=== PATIENT | female | born 1950 | race Caucasian/White ===

== ENCOUNTER 2020-01-14 12:43 | Emergency (ER) | payer MEDICARE, MEDICAID ==
[~2020-01-14] VITALS: Ht 165.1 cm; Wt 93.4 kg
[2020-01-14] MEDS ORDERED: QC F0.52 PO (13:07)
[2020-01-14] MEDS ORDERED: CYMB60CA3 PO (13:07)
[2020-01-14] MEDS ORDERED: ECOT81TA5 PO (13:07)
[2020-01-14] MEDS ORDERED: CYAN500T8 PO (13:07)
[2020-01-14] MEDS ORDERED: ZYLO300T6 PO (13:07)
[2020-01-14] MEDS ORDERED: IRON27TA2 PO (13:07)
[2020-01-14] MEDS ORDERED: HYDR12.55 PO (13:07)
[2020-01-14] MEDS ORDERED: DONE10TA90 PO (13:07)
[2020-01-14] MEDS ORDERED: VITA100T59 PO (13:07)
[2020-01-14] MEDS ORDERED: MELA10TA2 PO (13:07)
[2020-01-14] MEDS ORDERED: LOSA50TA88 PO (13:07)
[2020-01-14] MEDS ORDERED: CENT1TAB PO (13:07)
[2020-01-14] MEDS ORDERED: VITATAB74 PO (13:07)
[2020-01-14] MEDS ORDERED: ACETAMINOPHEN 650MG ER TAB (TYLENOL ARTHRITIS) PO SCH (14:00)
[2020-01-14] MEDS ORDERED: KETOROLAC 30 MG/ML VIAL (J1885) IM ONE (14:00)
[2020-01-14 14:30] VITALS: BP 158/79
[2020-01-14] MEDS ORDERED: TYLE650T35 PO (14:54)
[2020-01-14] MEDS ORDERED: DICL1GEL3 TOP (14:54)
--- NOTE | 2020-01-14 15:47 | REP ---
Right knee series: Five views. History: Acute exacerbation of chronic right knee pain. No acute injury. Findings: By views of the right knee demonstrate diffuse osteopenia. There is moderate chondrocalcinosis. There is three compartment osteoarthritic spurring. Patellofemoral narrowing and spur formation is seen. No erosive changes seen. No fracture is noted. Impression: Three compartment osteoarthritis. Chondrocalcinosis. No acute bony abnormality. Electronically Signed by Alo Neil MD 01/14/2020 01:28 P
== END 2020-01-14 15:15 | disposition home or self-care (01) ==
LOC: M ED 12:43
DX: M17.11 Unilateral primary osteoarthritis, right knee (principal); M25.561 Pain in right knee; G89.29 Other chronic pain; Z88.0 Allergy status to penicillin; Z79.899 Other long term (current) drug therapy; Z79.82 Long term (current) use of aspirin
CPT/HCPCS: 73564; 96372; 99283; J1885

== ENCOUNTER → 2024-05-04 | Outpatient (CLI) | payer MEDICARE, MEDICAID ==
[~2024-05-04] MED LIST: ACET650T61 PO; CENT1TAB PO; CYAN500T14 PO; CYMB60CA4 PO; DICL100G10 TOP; DONE10TA90 PO; ECOT81TA5 PO; HYDR12.55 PO; IRON27TA2 PO; LOSA50TA28 PO; MELA10TA2 PO; QC F0.52 PO; VITA100T59 PO; VITATAB74 PO; ZYLO300T6 PO
== END ==
LOC: M PAIN 13:00
PROVIDERS: ATTEND Nurse Practitioner Family
DX: M79.18 Myalgia, other site (principal); M25.561 Pain in right knee; G89.29 Other chronic pain; M25.562 Pain in left knee; I10 Essential (primary) hypertension; M10.9 Gout, unspecified; F32.A Depression, unspecified; F02.80 Dementia in other diseases classified elsewhere, unspecified severity, without behavioral disturbance, psychotic disturbance, mood disturbance, and anxiety; G30.9 Alzheimer's disease, unspecified; K21.9 Gastro-esophageal reflux disease without esophagitis; Z87.891 Personal history of nicotine dependence; Z79.899 Other long term (current) drug therapy; Z88.0 Allergy status to penicillin

== ENCOUNTER → 2024-07-02 | Outpatient (CLI) | payer MEDICARE, OTHER ==
[~2024-07-02] MED LIST changes: +ACET1TAB55; +ARIP1TAB6; +CETI-24; +DULO1CAP6; +ELIQ5TAB; +FAMO1TAB11; +GABA-282; +MELO15TA28; +METO1TAB32; +NORCO, ANEXSIA 5/325MG TABLET (HYDROcodone/ACETAMINOPHEN) As Ordered ONE; +TRAZ-257; +TRIAMCINOLONE ACETONIDE SUSP 40MG/ML 1ML VIAL As Ordered ONE; +diazePAM 5MG TABLET As Ordered ONE
== END ==
LOC: M PAIN 10:00
PROVIDERS: ATTEND Anesthesiology
DX: M79.18 Myalgia, other site (principal); G89.29 Other chronic pain; I10 Essential (primary) hypertension; M10.9 Gout, unspecified; F32.A Depression, unspecified; G30.9 Alzheimer's disease, unspecified; F02.80 Dementia in other diseases classified elsewhere, unspecified severity, without behavioral disturbance, psychotic disturbance, mood disturbance, and anxiety; K21.9 Gastro-esophageal reflux disease without esophagitis; M25.561 Pain in right knee; M25.562 Pain in left knee; Z79.1 Long term (current) use of non-steroidal anti-inflammatories (NSAID); Z79.01 Long term (current) use of anticoagulants; Z79.899 Other long term (current) drug therapy; Z88.0 Allergy status to penicillin
CPT/HCPCS: 20552; J0665; J3301

== ENCOUNTER → 2024-07-16 | Outpatient (CLI) | payer MEDICARE ==
[~2024-07-16] MED LIST changes: -NORCO, ANEXSIA 5/325MG TABLET (HYDROcodone/ACETAMINOPHEN) As Ordered ONE; -TRIAMCINOLONE ACETONIDE SUSP 40MG/ML 1ML VIAL As Ordered ONE; -diazePAM 5MG TABLET As Ordered ONE
== END ==
LOC: M SOG 07:24
PROVIDERS: ATTEND Physician Assistant
DX: M25.561 Pain in right knee (principal); M25.562 Pain in left knee

== ENCOUNTER → 2024-08-03 | Outpatient (CLI) | payer MEDICARE, MEDICAID ==
[~2024-08-03] MED LIST changes: +GABA-1172; -GABA-282
== END ==
LOC: M PAIN 11:00
PROVIDERS: ATTEND Nurse Practitioner Family
DX: G89.29 Other chronic pain (principal); M79.18 Myalgia, other site; I10 Essential (primary) hypertension; M10.9 Gout, unspecified; F32.A Depression, unspecified; G30.9 Alzheimer's disease, unspecified; F02.80 Dementia in other diseases classified elsewhere, unspecified severity, without behavioral disturbance, psychotic disturbance, mood disturbance, and anxiety; K21.9 Gastro-esophageal reflux disease without esophagitis; M25.561 Pain in right knee; M25.562 Pain in left knee; Z79.01 Long term (current) use of anticoagulants; Z79.1 Long term (current) use of non-steroidal anti-inflammatories (NSAID); Z79.899 Other long term (current) drug therapy; Z88.0 Allergy status to penicillin

== ENCOUNTER → 2024-10-02 | Outpatient (CLI) | payer MEDICARE | LOC: M PAIN 10:00 | PROVIDERS: ATTEND Nurse Practitioner Family | DX: M79.18 Myalgia, other site (principal); G89.29 Other chronic pain; I10 Essential (primary) hypertension; M10.9 Gout, unspecified; F32.A Depression, unspecified; E11.9 Type 2 diabetes mellitus without complications; G30.9 Alzheimer's disease, unspecified; F02.80 Dementia in other diseases classified elsewhere, unspecified severity, without behavioral disturbance, psychotic disturbance, mood disturbance, and anxiety; K21.9 Gastro-esophageal reflux disease without esophagitis; M25.561 Pain in right knee; M25.562 Pain in left knee; Z79.01 Long term (current) use of anticoagulants; Z79.899 Other long term (current) drug therapy; Z88.0 Allergy status to penicillin ==

== ENCOUNTER → 2025-01-07 | Outpatient (CLI) | payer MEDICARE ==
[~2025-01-07] MED LIST changes: +LOPE1CAP5 PO; +NS (Normal Saline) 0.9% 1,000 ML IV SCH
[2025-01-07 08:33] VITALS: TEMP 97
[2025-01-07 08:56] LABS: BASO % 0.3 % (0.0-1.0); EOS # 0.2 10^3/uL (0.0-0.5); EOS % 2.7 % (0.0-3.0); HEMATOCRIT 32.4 % (36.0-47.0); HEMOGLOBIN 10.8 g/dl (12.0-15.5); LYMPH # 2.7 10^3/uL (1.5-5.0); LYMPH % 36.4 % (24.0-44.0); MEAN CORPUSCULAR HEMOGLOBIN 33.5 pg (27.0-33.0); MEAN CORPUSCULAR HGB CONC 33.3 g/dl (32.0-36.5); MEAN CORPUSCULAR VOLUME 100.6 fl (80.0-96.0); MONO # 0.8 10^3/uL (0.0-0.8); MONO % 11.1 % (2.0-8.0); NEUTROPHILS # 3.6 10^3/uL (1.5-8.5); NEUTROPHILS % 49.1 % (36.0-66.0); PLATELET COUNT, AUTOMATED 227 10^3/uL (150-450); RED BLOOD COUNT 3.22 10^6/uL (4.00-5.40); WHITE BLOOD COUNT 7.4 10^3/uL (4.0-10.0)
[2025-01-07] MEDS: MIDAZOLAM INJ 2MG/2ML VIAL IV PRN (09:38)
[2025-01-07] MEDS: LIDOCAINE 1% MDV 20ML VIAL SC ONE (09:38)
[2025-01-07] MEDS: fentaNYL 100 MCG/2 ML INJECTION IV PRN (09:38)
[2025-01-07 10:10] VITALS: BP 162/93; O2SAT 95
== END ==
LOC: M IRPRO 08:18
PROVIDERS: ATTEND Internal Medicine Hematology & Oncology
DX: D75.89 Other specified diseases of blood and blood-forming organs (principal)
CPT/HCPCS: 38222; 77012; 85025; 88300; 88305; 88311; 88313; J2250; J3010